=== PATIENT | female | born 1970 | race Caucasian/White ===

== ENCOUNTER → 2024-11-14 | Outpatient (CLI) | payer BC, SELFPAY ==
--- NOTE | 2024-11-14 09:00 | XR_ITS ---
Examination: Breast ultrasound complete, bilateral Date and time of exam: November 14, 2024 0929 hours INDICATIONS: Yearly screening examination, extremely dense breast architecture history Technique: Real-time grayscale ultrasonographic imaging bilateral breasts, including all 4 quadrants as well as nipple retroareolar and axillary regions. Findings: No cystic or solid mass IMPRESSION: Negative examination
--- NOTE | 2024-11-14 10:00 | XR_ITS ---
Examination: Screening digital mammography, bilateral Computer aided detection 3-D breast Tomosynthesis, bilateral Date and time of exam: November 14, 2024 0946 hours Compared to mammograms dating to October 11, 2018 Indication: Screening Technique: Nonmagnified MLO, CC views of the breasts to been obtained, reconstructed from 3-D Tomosynthesis images. R2 computer aided detection program utilized for evaluation of suspicious masses and/or abnormal calcifications. 3-D Tomosynthesis images obtained. Findings: The breasts are heterogeneously dense, which may obscure small masses Skin lesion outer right breast Benign calcifications No interval suspicious masses Impression: BI-RADS category II: Benign Findings. Recommend 1 year follow-up mammogram.
== END | disposition home or self-care (01) ==
LOC: CDIM 09:14
PROVIDERS: PCP Internal Medicine; Referring Provider Internal Medicine; Visit Provider Internal Medicine
DX: Z12.31 Encounter for screening mammogram for malignant neoplasm of breast (principal); R92.323 Mammographic fibroglandular density, bilateral breasts; R92.1 Mammographic calcification found on diagnostic imaging of breast
CPT/HCPCS: 76641; 77063; 77067

== ENCOUNTER → 2025-01-10 | Outpatient (CLI) | payer BC, SELFPAY ==
[2025-01-10 11:45] LABS: Basophils # (Auto) 0.1 Thou/mm3 (0.0-0.2); Basophils % (Auto) 1 % (0-2.5); Eosinophils # (Auto) 0.4 Thou/mm3 (0.0-0.5); Eosinophils % (Auto) 7 % (0-10); Hematocrit 41.2 % (36.0-46.0); Hemoglobin 13.6 g/dL (12.0-16.0); Immature Granulocytes % (Auto) 0 % (0-0); Immature Granulocytes Auto 0.01 Thou/mm3 (0.00-0.00); Lymphocytes # (Auto) 1.8 Thou/mm3 (1.0-4.8); Lymphocytes % (Auto) 31 % (10-50); Mean Corpuscular Hemoglobin 28.9 pg (25.0-35.0); Mean Corpuscular Volume 88 fL (80-100); Monocytes # (Auto) 0.5 Thou/mm3 (0.0-0.8); Monocytes % (Auto) 8 % (0-12); Neutrophils # (Auto) 3.1 Thou/mm3 (1.8-7.7); Neutrophils % (Auto) 53 % (37-80); Nucleated Red Blood Cell % 0 /100 WBC (0); Platelet Count 257 Thou/mm3 (140-440); RDW Standard Deviation 42.5 fL (36.4-46.3); Red Blood Count 4.71 Miln/mm3 (4.00-5.20); White Blood Count 5.8 Thou/mm3 (3.6-11.0)
--- NOTE | 2025-01-10 11:59 | EKG_ITS ---
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
[2025-01-10 12:20] LABS: Alanine Aminotransferase 22 U/L (10-49); Albumin, Serum 4.6 gm/dL (3.5-5.0); Alkaline Phosphatase 92 U/L (46-116); Anion Gap 8 (7-16); Aspartate Amino Transferase 23 U/L (0-34); BUN/Creatinine Ratio 21 Ratio (12-20); Bilirubin,Direct 0.2 mg/dL (0.0-0.3); Bilirubin,Total 0.7 mg/dL (0.3-1.2); Blood Urea Nitrogen 17 mg/dL (9-23); Calcium 10.1 mg/dL (8.3-10.6); Carbon Dioxide 29.5 mMol/L (20.0-31.0); Cardiac Risk Estimate 2.4 RATIO (3.7-5.6); Chloride 106 mMol/L (98-107); Cholesterol 209 mg/dL (132-200); Creatinine (Component) 0.8 mg/dL (0.6-1.3); Glucose 89 mg/dL (74-106); HDL Cholesterol 88 mg/dL (40-60); LDL Cholesterol,Calculated 100 mg/dL (0-130); Osmolality,Calculated 285 (275-295); Potassium 4.7 mMol/L (3.4-5.1); Sodium 143 mMol/L (136-145); Total Protein 6.8 gm/dL (5.7-8.2); Triglycerides 107 mg/dL (30-150); eGFR > 60 See Note
== END | disposition home or self-care (01) ==
LOC: COPL 11:00
PROVIDERS: PCP Internal Medicine; Referring Provider Orthopaedic Surgery Orthopaedic Trauma; Visit Provider Orthopaedic Surgery Orthopaedic Trauma
DX: Z01.812 Encounter for preprocedural laboratory examination (principal); E78.5 Hyperlipidemia, unspecified; Z01.818 Encounter for other preprocedural examination
CPT/HCPCS: 36415; 80048; 80061; 80076; 85025; 93005

== ENCOUNTER → 2025-09-10 | Outpatient (CLI) | payer BC, SELFPAY ==
[2025-09-10 10:23] LABS: Basophils # (Auto) 0.1 Thou/mm3 (0.0-0.2); Basophils % (Auto) 1 % (0-2.5); Eosinophils # (Auto) 0.4 Thou/mm3 (0.0-0.5); Eosinophils % (Auto) 7 % (0-10); Hematocrit 42.9 % (36.0-46.0); Hemoglobin 13.6 g/dL (12.0-16.0); Immature Granulocytes Auto 0.01 Thou/mm3 (0.00-0.00); Lymphocytes # (Auto) 1.6 Thou/mm3 (1.0-4.8); Lymphocytes % (Auto) 27 % (10-50); Mean Corpuscular HGB Conc 31.7 g/dl (31.0-37.0); Mean Corpuscular Hemoglobin 28.3 pg (25.0-35.0); Mean Corpuscular Volume 89 fL (80-100); Monocytes # (Auto) 0.4 Thou/mm3 (0.0-0.8); Monocytes % (Auto) 7 % (0-12); Neutrophils # (Auto) 3.4 Thou/mm3 (1.8-7.7); Neutrophils % (Auto) 57 % (37-80); Nucleated Red Blood Cell # 0.00 Thou/mm3 (0.00-0.00); Nucleated Red Blood Cell % 0 /100 WBC (0); Platelet Count 286 Thou/mm3 (140-440); RDW Standard Deviation 42.4 fL (36.4-46.3); Red Blood Count 4.81 Miln/mm3 (4.00-5.20); White Blood Count 6.0 Thou/mm3 (3.6-11.0)
[2025-09-10 10:41] LABS: Alanine Aminotransferase 19 U/L (10-49); Albumin, Serum 5.0 gm/dL (3.5-5.0); Albumin/Globulin Ratio 2.2 (1.2-2.2); Alkaline Phosphatase 80 U/L (46-116); Anion Gap 9 (7-16); Aspartate Amino Transferase 23 U/L (0-34); BUN/Creatinine Ratio 12 Ratio (12-20); Bilirubin,Total 0.8 mg/dL (0.3-1.2); Blood Urea Nitrogen 11 mg/dL (9-23); Calcium 9.6 mg/dL (8.3-10.6); Calcium (Corrected) 9.6 mg/dL (8.5-10.1); Carbon Dioxide 28.4 mMol/L (20.0-31.0); Chloride 105 mMol/L (98-107); Creatinine (Component) 0.9 mg/dL (0.6-1.3); Globulin 2.3 gm/dL (2.3-3.5); Glucose 87 mg/dL (74-106); Osmolality,Calculated 281 (275-295); Potassium 4.0 mMol/L (3.4-5.1); Sodium 142 mMol/L (136-145); Thyroid Stimulating Hormone 1.61 uIU/mL (0.55-4.78); Total Protein 7.3 gm/dL (5.7-8.2); eGFR > 60 See Note
[2025-09-10 10:59] LABS: Cardiac Risk Estimate 2.8 RATIO (3.7-5.6); Cholesterol 188 mg/dL (132-200); HDL Cholesterol 66 mg/dL (40-60); LDL Cholesterol,Calculated 98 mg/dL (0-130); Triglycerides 121 mg/dL (30-150)
[2025-09-10 11:01] LABS: Collection Type, Urine Clean Catch
[2025-09-10 11:36] LABS: Vitamin B12 869 pg/mL (211-911); Vitamin D 25 Hydroxy Total 36.5 ng/mL (7.3-40.2)
[2025-09-10 11:52] LABS: Bilirubin,Urine Negative (Negative); Blood,Urine Negative (Negative); Clarity,Urine Clear (Clear/Hazy); Color,Urine Lt-Yellow (Lt Yel-Yel); Glucose, Urine Negative (Negative); Ketones,Urine Negative (Negative); Leukocyte Esterase,Urine Negative (Negative); Nitrite,Urine Negative (Negative); PH,Urine 6.5 (5.0-7.0); Protein,Urine Negative (Neg - Trace); RBC,Urine 1 /hpf (0-3); Specific Gravity,Urine 1.024 (1.001-1.035); Squamous Epithelial Cell,Urine < 1 /hpf (0-5); Urobilinogen,Urine Negative mg/dL (0.0-1.0); WBC,Urine 1 /hpf (0-5)
== END | disposition home or self-care (01) ==
LOC: COPL 09:53
PROVIDERS: PCP Internal Medicine; Referring Provider Internal Medicine; Visit Provider Internal Medicine
DX: Z00.00 Encounter for general adult medical examination without abnormal findings (principal); E78.5 Hyperlipidemia, unspecified
CPT/HCPCS: 36415; 80053; 80061; 81001; 82306; 82607; 84443; 85025